=== PATIENT | female | born 1990 | race Caucasian/White ===

== ENCOUNTER 2016-09-23 17:56 | Emergency (ER) | payer OTHER ==
[~2016-09-23] VITALS: Ht 175.3 cm; Wt 108.9 kg
--- NOTE | 2016-09-23 20:49 | ED SKIN/ALLERGY COMPLAINT ---
See Addendum History of Present Illness General Chief Complaint: General Adult Stated Complaint: NAUSEA, VOMITTING, ?ALLERGIC REACTION Source: patient, old records Exam Limitations: no limitations Vital Signs & Intake/Output Vital Signs & Intake/Output Vital Signs Date Time Temp Pulse Resp B/P Pulse O2 O2 Flow FiO2 Ox Delivery Rate 09/23 1823 97.3 107 18 147/87 98 Room Air Allergies Uncoded Allergies: CYCLOR (Severe, HIVES 09/23/16) Reconcile Medications Ondansetron (Zofran Odt) 4 MG TAB.RAPDIS 1 TAB SL TID PRN nausea Triage Note: REPORTS ITCHINESS AND RASH ALL OVER HER BODY. RECENTLY STARTED 2 MEDICATIONS AND BEVAUSE SHE STARTED THEM AT THE SAME TIME SHE DOES NOT KNOW TO WHICH SHE MAY BE REACTING. NO RESPIRATORY DISTRESS NOTED. Triage Nurses Notes Reviewed? yes Onset: Abrupt Duration: day(s): (3), constant, waxing and waning Timing: remote history Severity: mild, moderate Severity Numbers: 5 Location: generalized Possible Factors: no cause identified No Modifying Factors: none Associated Symptoms: n/v/d : No Patient currently breastfeeds: No HPI: 26-year-old female presents emergency room complaining of a three-day history of waxing and waning generalized pruritus, hives nausea vomiting and diarrhea for the past 3 days after she began taking Levaquin and butrans patches for her chronic pain. All of these medications were begun for the first time on Friday prior to the episodes beginning. She has continued taking the Levaquin since however stopped using the pain patch. She denies any sick contacts with similar symptoms she denies any abdominal pain fever or chills however has been unable to keep anything down secondary to nausea and vomiting. She denies fever or chills. She is currently on the Levaquin for a persistent left ear infection. No rhinorrhea and no cough no sore throat. She denies any lip or tongue swelling no difficulty breathing or swallowing (ZACKARY BUTT) Past History Travel History Traveled to [place] past 21 day No Medical History Any Pertinent Medical History? see below for history Gastrointestinal: GASTRIC SLEEVE Endocrine: MASS ON HER THYROID Surgical History Surgical History: gastric sleeve, Psychosocial History What is your primary language Bel[place]ian Tobacco Use: Never used Family History Hx Contributory? No (ZACKARY BUTT) Review of Systems Review of Systems Constitutional: Reports: see HPI. All Other Systems: Reviewed and Negative Comments Review of systems: See HPI, All other systems negative. Constitutional, no chills no fever, no malaise no weight loss HEENT: No visual changes no sore throat no congestion Cardiovascular: No chest pain , no palpitation Skin, no rashes, no change in skin Respiratory: No dyspnea no cough no sputum no hemoptysis GI: nausea vomiting, diarrhea, no bloating/constipation : No dysuria No hematuria, no frequency Muscle skeletal: No joint pain, no joint swelling, no back pain, no neck pain, Neurologic: No numbness no confusion, no headache Psych: No stress no anxiety no depression heme: no brusing no bleeding Immunology: No lymphadenopathy, no splenectomy (ZACKARY BUTT) Physical Exam Physical Exam General Appearance: well developed/nourished, no apparent distress, alert, awake , comfortable Comments: Well-developed well-nourished person in no acute distress Head/Face: Atraumatic, no maxillary/frontal sinus tenderness, no facial swelling Eyes: PERRL, EOMI, no conjunctival injection. No nystagmus Ear:External auditory canal and Tympanic membranes clear, no erythema, no FB. Nose: atraumatic.Normal inspection: No bleeding, no septal hematoma Throat: Moist mucous membranes.Pharynx normal. No pharyngeal erythema/exudate seen. No stridor/drooling or assymetry. No swelling or edema. Neck: Supple, no lymphadenopathy, FROM Back: Nontender, no CVA tenderness. Full range of motion Cardiovascular: Regular rate and rhythms no murmurs rubs Respiratory: No respiratory distress. Patient speaking in full complete sentences. Breath sounds clear to auscultation bilaterally: NO W/R/R Abdomen: Soft, nontender nondistended, no appreciable organomegaly. Normal bowel sounds. No rebound/guarding, Extremity: No edema, full range of motion of extremities Neuro: Alert oriented x3, motor sensory normal. No focal neurologic deficits Skin: No appreciable rash on exposed skin, skin is warm and dry. Psych: Mood and affect is normal, memory and judgment is normal. (ZACKARY BUTT) Progress Differential Diagnosis: allergic reaction, urticaria, medication adverse effect gastroenteritis hepatitis dehydration electrolyte abnormality influenza otitis media otitis externa mastoiditis ectopic UTI drug intoxication Plan of Care: Orders Procedure Date/time Status Saline Lock 09/23 2109 Active RAPID VIRAL INFLUENZA A 09/23 2109 Complete URINE 09/23 2109 Complete URINE DRUG SCREEN FOR ER ONLY 09/23 2109 Complete URINALYSIS 09/23 2109 Complete THYROID STIMULATING HORMONE 09/23 2109 Active LIPASE 09/23 2109 Active COMPREHENSIVE METABOLIC PANEL 09/23 2109 Active CBC WITHOUT DIFFERENTIAL 09/23 2109 Complete Laboratory Tests 09/23/16 2244: Anion Gap 11, Estimated GFR > 60, BUN/Creatinine Ratio 18.6, Glucose 81, Calcium 9.7, Total Bilirubin 0.6, AST 25, ALT 34, Alkaline Phosphatase 82, Total Protein 7.9, Albumin 4.6, Globulin 3.3, Albumin/Globulin Ratio 1.4, Lipase 203, TSH Pending 09/23/162207: CBC w Diff NO MAN DIFF REQ, RBC 4.93, MCV 84.8, MCH 28.0, RDW 13.6, MPV 8.6, Gran % 84.1 H, Lymphocytes % 11.9 L, Monocytes % 2.6, Eosinophils % 1.2, Basophils % 0.2, Absolute Granulocytes 10.7 H, Absolute Lymphocytes 1.5, Absolute Monocytes 0.3, Absolute Eosinophils 0.1, Absolute Basophils 0, PUBS MCHC 33.0 09/23/162149: Urine Opiates Screen 740.00, Methadone Screen 90, Barbiturate Screen < 60, Ur Phencyclidine Scrn 8.30, Amphetamines Screen < 100, U Benzodiazepines Scrn > 800 H, Urine Cocaine Screen < 50, Urine Cannabis Screen < 5.00, Urinalysis LIGHT H , Urine Color YEL, Urine Clarity CLEAR, Urine pH 6.0, Ur Specific [place] >= 1.030, Urine Protein TRACE H, Urine Ketones 15 H, Urine Nitrite NEG, Urine Bilirubin NEG, Urine Urobilinogen 0.2, Ur Leukocyte Esterase NEG, Ur Microscopic SEDIMENT EXAMINED, Urine RBC RARE, Urine WBC RARE, Ur Epithelial Cells MOD H, Urine Mucus MOD H, Urine Hemoglobin NEG, Urine Glucose NEG, Urine Test NEGATIVE Labs ordered old records reviewed patient acute Tylenol 1 g IV Zofran 4 [place] grams IV IV fluids 09/23/2016 11:02:16 PM discussed with the patient at length all of her lab results to date pending chemistry, she is feeling improved IV fluids are running case was discussed with and signed out to Dr. Suazo at this time pending labs, by mouth challenge (ZACKARY BUTT) 11:21 PM Patient discharged by ISATU Diana. (CHANELL PARIS,ANGELO) Hand-Off Endorsed To: ANGELO SUAZO MD Endorsed Time: 2307 Pending: labs (ZACKARY BUTT) Departure Departure Disposition: HOME OR SELF CARE Condition: Stable Clinical Impression Primary Impression: Nausea vomiting and diarrhea Referrals: KYLE PARIS,MARQUES BROWN (PCP/Family) Additional Instructions: Zofran for nausea. Follow-up with your primary care physician as discussed this week. Continue taking the Levaquin. Stop using the butrans patch until you have spoken with your primary care physician. [place] diet no fatty spicy greasy foods. Clear liquids advance diet as tolerated. Return anytime sooner with any concerns Departure Forms: Customer Survey General Discharge Information Prescriptions: Current Visit Scripts Ondansetron (Zofran Odt) 1 TAB SL TID PRN nausea #10 TAB (ZACKARY BUTT) PA/TWISTING FRAME FIXER Co-Sign Statement Statement: ED Attending supervision documentation- [] I saw and evaluated the patient. I have also reviewed all the pertinent lab results and diagnostic results. I agree with the findings and the plan of care as documented in the PA's/TWISTING FRAME FIXER's documentation. [x] I have reviewed the ED Record and agree with the PA's/TWISTING FRAME FIXER's documentation. [] Additions or exceptions (if any) to the PAs/TWISTING FRAME FIXER's note and plan are summarized below: [] (ANGELO SUAZO MD)
[2016-09-23 22:19] LABS: ABSOLUTE BASOPHIL COUNT 0 /CUMM (0.0-0.2); ABSOLUTE EOSINOPHIL COUNT 0.1 /CUMM (0.0-0.7); ABSOLUTE GRANULOCYTE CT 10.7 /CUMM (1.4-6.5); ABSOLUTE LYMPH COUNT 1.5 /CUMM (1.2-3.4); ABSOLUTE MONOCYTE COUNT 0.3 /CUMM (0.10-0.60); BASOPHIL % 0.2 % (0.0-2.0); EOSINOPHIL % 1.2 % (0-5); GRANULOCYTE % 84.1 % (42.2-75.2); HEMATOCRIT 41.8 % (37-47); MEAN CORPUSCULAR VOLUME 84.8 FL (81.0-99.0); MEAN PLATELET VOLUME 8.6 FL (7.4-10.4); PLATELET COUNT 320 /CUMM (130-400); RBC DISTRIBUTION WIDTH 13.6 % (11.5-14.5); RED BLOOD CELL CT 4.93 /CUMM (4.20-5.40); WHITE BLOOD CELL COUNT 12.7 /CUMM (4.8-10.8)
[2016-09-23] MEDS ORDERED: ZOFRAN ODT4 M1 SL (23:07)
[2016-09-23 23:36] VITALS: BP 134/82
== END 2016-09-23 23:38 ==
LOC: ERH 17:56
PROVIDERS: Physician Assistant Medical
DX: R11.2 Nausea with vomiting, unspecified (principal); R19.7 Diarrhea, unspecified
CPT/HCPCS: 80307; 81001; 81025; 87804; 87804-59; 96374; 96375; J0131; J2405; J3101